=== PATIENT | male | born 1955 | race Caucasian/White ===

== ENCOUNTER 2018-02-04 00:50 | Outpatient (RCR) | payer OTHER, SELFPAY ==
[2018-02-04] MEDS: Normal Saline Flush 10 ML SYR IVP (07:15)
[2018-02-04 07:36] LABS: Abs Immature Grans 0.03 k/cumm (0.0-0.09); Absolute Basophil Count 0.04 k/cumm (0.0-0.2); Absolute Lymphocyte Count 1.57 k/cumm (1.2-3.4); Absolute Monocyte Count 1.31 k/cumm (0.11-0.7); Absolute Neutrophil Count 11.15 k/cumm (1.2-6.7); Basophils % 0.3; Eosinophils % 2.1; HCT 37.7 % (40.0-50.0); HGB 13.1 g/dL (13.5-17.5); Immature Grans % 0.2; Lymphocytes % 10.9; Mean Corp. HGB Concentration 34.7 g/dL (32.0-36.0); Mean Corpuscular Hemoglobin 30.3 pg (27.0-33.0); Mean Corpuscular Volume 87.1 fL (80-95); Mean Platelet Volume 11.1 fL (8.0-11.0); Monocytes % 9.1; Neutrophils % 77.4; Platelet Count 192 x1000/uL (130-400); RBC 4.33 m/cumm (4.50-6.00); RBC Distribution Width 12.5 % (11.8-14.1); White Blood Cell Count 14.41 k/cumm (4.4-10.8)
[2018-02-04 07:57] LABS: ALT 13 U/L (12-78); AST 7 U/L (15-37); Albumin 3.2 g/dL (3.4-5.0); Alkaline Phosphatase 99 U/L (46-116); Anion Gap 6.8 mmol/L (3-11); BUN 22 mg/dL (7-18); Bilirubin, Total 0.5 mg/dL (0.2-1.0); CO2 29.2 mmol/L (21.0-32.0); Calcium 9.2 mg/dL (8.5-10.1); Chloride 103 mmol/L (98-107); Glucose 201 mg/dL (70-100); Potassium 3.6 mmol/L (3.5-5.1); Sodium 139 mmol/L (136-145); Total Protein 6.6 g/dL (6.4-8.2)
== END 2018-02-13 23:59 | disposition home or self-care (01) ==
LOC: INF 00:50
PROVIDERS: Visit Provider Internal Medicine Hematology & Oncology
DX: C25.1 Malignant neoplasm of body of pancreas (principal); Z45.2 Encounter for adjustment and management of vascular access device
CPT/HCPCS: 36591; 80053; 85025

== ENCOUNTER 2018-02-07 01:48 | Emergency (ER) | payer OTHER, SELFPAY ==
[2018-02-07] VITALS (11 sets, daily range): BP systolic 152–157; BP diastolic 85–110; PULSE 85–101; RESP 24–26; TEMP 37.1–37.5; O2SAT 94–99
--- NOTE | 2018-02-07 01:54 | DI.RAD_ITS ---
SYMPTOMS/DIAGNOSIS: VOMITING, CANCER, ? ACUTE DISEASE CHEST: Frontal and lateral views. No priors. The heart size and pulmonary vasculature are within normal limits. The lungs are clear. No effusions or pneumothoraces are identified. Note is made of a small amount of free intraperitoneal air beneath both hemidiaphragms. IMPRESSION: 1. Small amount of pneumoperitoneum. 2. No acute pulmonary process.
[2018-02-07 02:20] LABS: Abs Immature Grans 0.01 k/cumm (0.0-0.09); Absolute Basophil Count 0.01 k/cumm (0.0-0.2); Absolute Eosinophil Count 0.01 k/cumm (0.0-0.7); Absolute Lymphocyte Count 0.75 k/cumm (1.2-3.4); Absolute Monocyte Count 0.42 k/cumm (0.11-0.7); Absolute Neutrophil Count 7.69 k/cumm (1.2-6.7); Basophils % 0.1; Eosinophils % 0.1; HCT 39.5 % (40.0-50.0); HGB 13.9 g/dL (13.5-17.5); Immature Grans % 0.1; Lymphocytes % 8.4; Mean Corp. HGB Concentration 35.2 g/dL (32.0-36.0); Mean Corpuscular Hemoglobin 30.4 pg (27.0-33.0); Mean Corpuscular Volume 86.4 fL (80-95); Mean Platelet Volume 11.3 fL (8.0-11.0); Monocytes % 4.7; Neutrophils % 86.6; Platelet Count 197 x1000/uL (130-400); RBC 4.57 m/cumm (4.50-6.00); RBC Distribution Width 12.5 % (11.8-14.1); White Blood Cell Count 8.89 k/cumm (4.4-10.8)
[2018-02-07] MEDS: Normal Saline 1,000 ML 1000 ML IV ×2 (02:20→03:32)
[2018-02-07] MEDS: Prochlorperazine 10 MG/2 ML VIAL (02:26)
[2018-02-07 02:42] LABS: ALT 14 U/L (12-78); AST 10 U/L (15-37); Albumin 3.1 g/dL (3.4-5.0); Alkaline Phosphatase 106 U/L (46-116); Anion Gap 14.5 mmol/L (3-11); BUN 16 mg/dL (7-18); Bilirubin, Direct 0.15 mg/dL (0.00-0.20); Bilirubin, Total 0.7 mg/dL (0.2-1.0); CO2 24.5 mmol/L (21.0-32.0); CREATININE 0.89 mg/dL (0.70-1.30); Chloride 98 mmol/L (98-107); Glucose 284 mg/dL (70-100); Magnesium 1.4 mg/dL (1.8-2.4); Potassium 3.5 mmol/L (3.5-5.1); Sodium 137 mmol/L (136-145); Total Protein 6.9 g/dL (6.4-8.2)
[2018-02-07 02:46] LABS: Troponin I < 0.02 ng/mL (0.00-0.06)
--- NOTE | 2018-02-07 03:08 | NUR.NOTE ---
Nursing Note: pt on side, tolerates ice chips. No emesis since arrival in ED. Improvement with Morphine.
--- NOTE | 2018-02-07 03:18 | DI.VRAD_ITS ---
EXAM: XR Chest, 2 Views CLINICAL HISTORY: 62 years old, male; Signs and symptoms; Other: Vomiting; Prior surgery; Surgery type: Port TECHNIQUE: Frontal and lateral views of the chest. COMPARISON: No relevant prior studies available. FINDINGS: Lungs: Unremarkable. No consolidation. Pleural space: Unremarkable. No pneumothorax. Heart: Unremarkable. No cardiomegaly. Mediastinum: Unremarkable. Bones/joints: Unremarkable. Other findings: Small amount of free intraperitoneal air. IMPRESSION: Small amount of free intraperitoneal air. Dictated and Authenticated by: Angel Ramirez MD. Ordering:CLEOPATRA BLOUNT MD
[2018-02-07] MEDS: MAGNESIUM SULFATE 1 GM/100 ML BAG IVPB ×2 (03:22→06:10)
--- NOTE | 2018-02-07 03:22 | W.ED.GENAD ---
Discharge Plan Discharge Details Chief Complaint: Nausea/Vomit/Diar Primary Care Provider: Karthik Marshall ED Provider: Carmen Corrales Home Meds and New Rx's Prescriptions: No Action atorvastatin 80 mg Tablet 80 mg PO DAILY RF: 0 clopidogrel [Plavix] 75 mg Tablet 75 mg PO DAILY RF: 0 aspirin 81 mg Tablet,Delayed Release (Dr/Ec) 81 mg PO DAILY RF: 0 dicyclomine 20 mg Tablet 20 mg PO QID RF: 0 amlodipine 10 mg Tablet 10 mg PO DAILY RF: 0 gabapentin 300 mg Capsule 600 mg PO BID RF: 0 fentanyl 25 mcg/hr Patch 72 Hour 1 patch TRANSDERMAL Q72H RF: 0 indomethacin 75 mg Capsule, Extended Release 75 mg PO BID RF: 0 duloxetine 20 mg Capsule,Delayed Release(Dr/Ec) 20 mg PO BID RF: 0 insulin NPH and regular human [Humulin 70/30 U-100 KwikPen] 100 unit/mL (70-30) Insulin Pen 10 units subcut BID RF: 0 cholecalciferol (vitamin D3) 2,000 unit Tablet 2,000 unit PO DAILY RF: 0 latanoprost 0.005 % Drops 1 drp OPHTHALMIC (EYE) QPM RF: 0 metoprolol tartrate 100 mg Tablet 100 mg PO DAILY RF: 0 prochlorperazine maleate [Compazine] 10 mg Tablet 10 mg PO . DIRECTED RF: 0 pantoprazole 40 mg Tablet,Delayed Release (Dr/Ec) 40 mg PO DAILY RF: 0 losartan 100 mg Tablet 100 mg PO DAILY RF: 0 Discharge Data Discharge Date/Time-TO BE ENTERED AT DEPARTURE: 02/07/18 06:35 Medical Decision Making 62-year-old male with a history of diabetes, hypertension, hyperlipidemia, GERD and who was diagnosed with stage IV pancreatic cancer 1 month ago who and his first chemo treatment at [facility] 2 days ago who presents w/ vomiting and abdominal pain since yesterday. states patient has been taking Zofran but was advised to not do so recently due to interaction with recent chemo. BP 157/110 on arrival, remainder of vitals within normal limits, afebrile. Patient appears comfortable, holding abdomen. Lungs clear to auscultation. Abdomen soft but diffusely tender. 0223 --EKG notes a rate of 78, sinus, no acute ST elevation or depression, QTc 408, QRS 102. We will place an IV, bolus IV fluids, labs, urinalysis, chest x-ray, dose of morphine and Compazine and reassess. 0325 --labs and imaging reviewed. White blood cell count 8.89. Hemoglobin 13.9. Anion gap 14.5. Creatinine 0.89. Magnesium 1.4. Troponin negative. Urinalysis not yet obtained. Will replete magnesium with 1 gIV. Vrad called to state that pt is noted to have small amount of free intraperitoneal air. Patient's reports that patient had had an endoscopy and [facility] this month as well as a laparoscopy at [facility] per Dr. Nguyen on January 26. This was discussed with [facility] radiology and he stated he would not expect this amount of air still present after laparoscopy a couple weeks ago. 0330 -- D/w Dr. Milner - recommends CT abdomen and d/w [facility] surgery. Will hold on p.o. contrast at this time due to nausea. 0335 -- Pt felt some relief after morphine and Zofran but nausea and pain returning. Will give another dose of Compazine and Dilaudid. 0355 -- D/w [facility] Dr. Nguyen - agrees with plan for CT abdomen and that air should still not be present from recent laparoscopy and would like at least a quick prep with oral contrast in addition to IV. Will accept patient for transfer once CT reported to know of any other acute findings. 0500 -- CT notes multiple foci of free intraperitoneal air predominantly in the upper abdomen given the distribution suspect gastric or duodenal bulb perforation. Results discussed with Dr. Nguyen and agrees with plan for transfer to [facility] ED. Discussed with the ED attending Dr. Grimes who accepts patient for transfer to ED - would like dose of Zosyn. 0520 --patient and informed of plan for transfer to [facility]. Patient is complaining of return of pain. Heart rate low 100s. Recheck temp 99.1. Abdomen remained soft and appears less tender to palpation. Lactate 1.1. Patient denies nausea. Will give a dose of Dilaudid. 0545 --nurse expressed concern about PVCs noted on monitor. Patient states he has a history of PVCs. He denies any chest pain or shortness of breath. Nurse stated she had noted some change in the QRS amplitude across leads and raised concern about possible prolonged QT. Repeat EKG noted rate of 94, sinus, occasional PVCs, QTC 428, QRS 100. QTc on first EKG was 408. Will give another dose of 1 g of magnesium IV. Pt stable and appears more comfortable prior to transfer. HPI General Mode of arrival: wheelchair. Date/Time Provider Initiated Documentation: 02/07/18 01:52. Limitations to Documentation: no limitations. Information obtained by: patient. HPI Narrative: Pt is a 62yo M with a history of diabetes, hypertension, hyperlipidemia, GERD, recently diagnosed stage IV pancreatic cancer with recent endoscopy and laparoscopy at [place] and [facility] respectively who had his first chemo treatment at [facility] 2 days ago who presents with vomiting and abdominal pain since yesterday. Patient states he has had chronic vomiting and abdominal pain for months which initially led to his pancreatic cancer diagnosis. States he has vomited countless times since yesterday. States it is mainly food now bile. Last ate 2 days ago. Last bowel movement today denies any diarrhea. States his abdominal pain is around his umbilicus and currently 6/10. He denies fever, chest pain, shortness of breath or urinary symptoms. Past medical history: Diabetes, hypertension, hyperlipidemia, GERD, stage IV pancreatic cancer, coronary artery disease Surgical history: Cardiac stent ?3, lumbar fusion, laparoscopy with 2 polypectomies Social history: Tobacco use ?13 years, quit 30 years ago, denies alcohol use, daily marijuana use Medications: See list Allergies: NKDA PCP: Dr. Marshall Oncology: Dr. Angelo Surgery at [facility]: Dr. Nguyen Related Data Home Medications Medication Instructions Recorded Confirmed amlodipine 10 mg PO DAILY 02/07/18 02/07/18 aspirin 81 mg PO DAILY 02/07/18 02/07/18 atorvastatin 80 mg PO DAILY 02/07/18 02/07/18 cholecalciferol (vitamin D3) 2,000 unit PO DAILY 02/07/18 02/07/18 clopidogrel [Plavix] 75 mg PO DAILY 02/07/18 02/07/18 dicyclomine 20 mg PO QID 02/07/18 02/07/18 duloxetine 20 mg PO BID 02/07/18 02/07/18 fentanyl 1 patch TRANSDERMAL Q72H 02/07/18 02/07/18 gabapentin 600 mg PO BID 02/07/18 02/07/18 indomethacin 75 mg PO BID 02/07/18 02/07/18 insulin NPH and regular human 10 units SUBCUT BID 02/07/18 02/07/18 [Humulin 70/30 U-100 KwikPen] latanoprost 1 drp OPHTHALMIC (EYE) QPM 02/07/18 02/07/18 losartan 100 mg PO DAILY 02/07/18 02/07/18 metoprolol tartrate 100 mg PO DAILY 02/07/18 02/07/18 pantoprazole 40 mg PO DAILY 02/07/18 02/07/18 prochlorperazine maleate 10 mg PO . DIRECTED 02/07/18 02/07/18 [Compazine] Allergies Allergy/AdvReac Type Severity Reaction Status Date / Time No Known Allergies Allergy Unverified 02/07/18 02:27 General Stated Complaint: Nausea/Vomit/Diar MOIZ: 2 Review of Systems Review of Systems All systems reviewed & are unremarkable except as noted in HPI and below Constitutional Denies chills, Denies excessive sweating, Denies fatigue, Denies fever(s), Denies weakness and Denies weight loss Eyes Reports system reviewed and no additional complaints, except as docu and Denies blurry vision ENT Denies vertigo, Denies dizziness, Denies otalgia, Denies nasal congestion, Denies sore throat and Denies throat swelling Cardiovascular Denies chest pain, Denies syncope, Denies rapid heart rate and Denies dyspnea Respiratory Denies dyspnea Gastrointestinal Reports abdominal pain, Denies diarrhea, Reports nausea and Reports vomiting Genitourinary Denies hematuria, Denies dysuria and Denies flank pain Musculoskeletal Denies back pain and Denies joint swelling Integumentary/Breasts Denies lesions and Denies rash Neurologic Denies behavioral changes, Denies confusion, Denies vertigo, Denies dizziness, Denies syncope and Denies weakness Psychiatric Denies behavioral changes, Denies confusion and Denies depression Endocrine Denies excessive sweating and Denies fatigue Hematologic/Lymphatic Denies easy bruising and Denies lymphadenopathy Allergic/Immunologic Denies throat swelling PFSH Social History Smoking/Tobacco Use Status: Former Tobacco Use Exam Const General: cooperative, acute distress (Mild to moderate, holding abdomen) and disheveled Orientation: alert, awake and oriented x3 HENMT Head: normal to inspection Ears: hearing grossly normal bilaterally and external ears normal General nose exam: external nose normal Face and sinus: normal facial exam Mouth: mucous membranes dry Throat: posterior oropharynx normal Eyes General: appearance normal, both eyes and all related structures Eyelids: eyelids normal Pupils: PERRL EOM: EOM intact bilaterally Neck Neck: normal visual inspection Lymphatic: no lymphadenopathy noted Chest Chest: normal inspection of the chest Resp Effort & Inspection: normal respiratory effort and able to speak in complete sentences Auscultation: clear to auscultation bilaterally Cardio Rate: regular rate Rhythm: regular rhythm GI Inspection: normal to inspection and non-distended Palpation: soft, not firm, no guarding, no hepatosplenomegaly, no masses and tender (diffuse, worse in lower abdomen) Auscultation: no high pitched sounds and hypoactive bowel sounds Male General Exam: Yes normal external exam Scrotum: scrotum normal Testes: normal and no testicular tenderness Back/Spine/Pelvis Back: no CVA tenderness Skin General skin exam: no rashes or lesions noted Neuro General: alert and awake Cognition: normal cognition Speech: speech normal Gait: normal gait Motor: muscle tone normal throughout Sensory Exam: no sensory deficits noted Extrem General: normal to inspection, full ROM, normal capillary refill and no edema Psych Appearance: grossly normal Mental Status: mental status grossly normal Speech and Movement: restless Thought Process: normal Course Vital Signs Temperature 98.8 F 02/07/18 02:16 Pulse 89 02/07/18 02:16 Respiratory Rate 26 H 02/07/18 02:16 Blood Pressure 157/110 H 02/07/18 02:16 Pulse Oximetry 99 02/07/18 02:16 Temperature 98.8 F 02/07/18 02:16 Temperature Source Tympanic 02/07/18 02:16 Pulse 89 02/07/18 02:16 Pulse 99 H 02/07/18 03:00 Respiratory Rate 26 H 02/07/18 02:16 Respiratory Effort Non-Labored 02/07/18 02:27 Blood Pressure 157/110 H 02/07/18 02:16 Blood Pressure Position Supine 02/07/18 02:16 Pulse Oximetry 94 L 02/07/18 03:00 Oxygen Delivery Method Room Air 02/07/18 02:16 Oxygen Flow Rate 0 02/07/18 02:16 Pain Level 8 02/07/18 02:58 Comment 02/07/18 02:16 Lab/Test Results Lab/Test Results: Laboratory Tests Range/Units 02/07/18 02/07/18 02:10 02:10 WBC (4.4-10.8) k/cumm 8.89 RBC (4.50-6.00) m/cumm 4.57 Hgb (13.5-17.5) g/dL 13.9 Hct (40.0-50.0) % 39.5 L MCV (80-95) fL 86.4 MCH (27.0-33.0) pg 30.4 MCHC (32.0-36.0) g/dL 35.2 RDW (11.8-14.1) % 12.5 Plt Count (130-400) x1000/uL 197 MPV (8.0-11.0) fL 11.3 H Immature Gran % 0.1 Neutrophils % 86.6 Lymphocytes % 8.4 Monocytes % 4.7 Eosinophils % 0.1 Basophils % 0.1 Absolute Neutrophils (1.2-6.7) k/cumm 7.69 H Absolute Lymphocytes (1.2-3.4) k/cumm 0.75 L Absolute Monocytes (0.11-0.7) k/cumm 0.42 Absolute Eosinophils (0.0-0.7) k/cumm 0.01 Absolute Basophils (0.0-0.2) k/cumm 0.01 Sodium (136-145) mmol/L 137 Potassium (3.5-5.1) mmol/L 3.5 Chloride (98-107) mmol/L 98 Carbon Dioxide (21.0-32.0) mmol/L 24.5 Anion Gap (3-11) mmol/L 14.5 H BUN (7-18) mg/dL 16 D Creatinine (0.70-1.30) mg/dL 0.89 Estimated GFR/1.73 m2 (mL/min/1.73m2) >= 60.00 Glucose (70-100) mg/dL 284 H Calcium (8.5-10.1) mg/dL 9.0 Magnesium (1.8-2.4) mg/dL 1.4 L Total Bilirubin (0.2-1.0) mg/dL 0.7 Conjugated Bilirubin (0.00-0.20) mg/dL 0.15 AST (15-37) U/L 10 L ALT (12-78) U/L 14 Alkaline Phosphatase (46-116) U/L 106 Troponin I (0.00-0.06) ng/mL < 0.02 Total Protein (6.4-8.2) g/dL 6.9 Albumin (3.4-5.0) g/dL 3.1 L
--- NOTE | 2018-02-07 03:31 | DI.CT_ITS ---
SYMPTOMS/DIAGNOSIS: ABD PAIN, VOMITING, ? ACUTE PROCESS CT SCAN OF THE ABDOMEN AND PELVIS: CT abdomen and pelvis was performed following oral and intravenous contrast material. The visualized lung bases are clear. The liver is unremarkable. No evidence of a hepatic mass is seen. The gallbladder is negative. No biliary ductal dilatation is present. The portal and superior mesenteric veins are patent. The spleen and adrenal glands are unremarkable. The kidneys show normal and symmetric enhancement. No suspicious solid renal masses or obstruction is identified. The urinary bladder is intact. The prostate gland is unremarkable. There is an ill-defined area of decreased attenuation in the distal body of the stomach measuring roughly 6 cm by 3 cm, suspicious for pancreatic mass. Portions of the splenic vein are not well visualized. The abdominal aorta is intact. No significant aneurysmal dilatation is seen. Note is made of a circumaortic left renal vein. No abdominal ascites is present. There is a small to moderate amount of free intraperitoneal air, predominantly in the upper abdomen. The location of the air raises the question of a possible gastric or duodenal perforation. There is diverticulosis of the colon but no evidence of acute diverticulitis. No findings to suggest an acute appendicitis are present. Post surgical changes are seen in the spine with L 3, 4 and 5 laminectomies. Pedicle screws and connecting rods are seen at L 4 and L 5. Grade I spondylolisthesis of L 4 on L 5. Moderately severe degenerative changes are seen in the lumbar spine particularly at L 1 - 2 and L 2 - 3. IMPRESSION: 1. Free intraperitoneal air predominantly in the upper abdomen raising the question of perforation of the stomach or duodenum. 2. Diverticulosis of the colon but no evidence of acute diverticulitis. 3. Mass in the body of the pancreas of which the patient is reportedly aware. Please correlate clinically.
[2018-02-07 03:33] LABS: Bilirubin Negative (Negative); Blood Negative (Negative); Clarity Clear; Glucose 500 mg/dL (Negative); Ketones 80 mg/dL (Negative); Leukocyte Esterase Negative (Negative); Nitrite Negative (Negative); Urobilinogen 0.2 EU/dL (Up TO 0.2)
[2018-02-07] MEDS: Prochlorperazine 10 MG/2 ML VIAL IVP (03:42)
[2018-02-07 03:44] LABS: Bacteria Rare HPF (Negative); C & S Indicated? No; Casts Negative LPF (Negative); Crystals Negative HPF (Negative); Epithelial Cells Negative HPF (Negative); Mucus Negative (Negative); RBC 0-2 (0-2); WBC 0-2 HPF (0-5)
[2018-02-07] MEDS: HYDROmorphone 2 MG/ML VIAL 1 MG IVP ×2 (03:44→06:12)
[2018-02-07 04:05] LABS: Lactate-non-spesis 1.1 mmol/L (0.6-1.4)
[2018-02-07] MEDS: Breeza Beverage 473 ML BTL PO (04:45)
[2018-02-07] MEDS: Omnipaque 350 MG/ML 50 ML BTL IJ (04:46)
[2018-02-07] MEDS: Omnipaque 350 MG/ML 100 ML BTL IJ (04:46)
--- NOTE | 2018-02-07 04:50 | DI.VRAD_ITS ---
EXAM: CT Abdomen and Pelvis With Intravenous Contrast CLINICAL HISTORY: 62 years old, male; Pain; Abdominal pain; Epigastric TECHNIQUE: Axial computed tomography images of the abdomen and pelvis with intravenous contrast. All CT scans at this facility use at least one of these dose optimization techniques: automated exposure control; mA and/or kV adjustment per patient size (includes targeted exams where dose is matched to clinical indication); or iterative reconstruction. Coronal and sagittal reformatted images were created and reviewed. CONTRAST: 100 mL of [id number] administered intravenously. COMPARISON: No relevant prior studies available. FINDINGS: Lung bases: Unremarkable. No mass. No consolidation. ABDOMEN: Liver: Unremarkable. No mass. Gallbladder and bile ducts: Unremarkable. No calcified stones. No ductal dilation. Pancreas: Ill-defined pancreatic body hypodensity measuring roughly 5.9 x 3.1 cm. No ductal dilation. Spleen: Unremarkable. No splenomegaly. Adrenals: Unremarkable. No mass. Kidneys and ureters: Unremarkable. No solid mass. No hydronephrosis. Stomach and bowel: There are some colonic diverticuli. No obstruction. No mucosal thickening. PELVIS: Appendix: No findings to suggest acute appendicitis. Bladder: Unremarkable. No mass. Reproductive: Unremarkable as visualized. ABDOMEN and PELVIS: Intraperitoneal space: Multiple foci of free intraperitoneal air predominantly in the upper abdomen. No significant fluid collection. Bones/joints: No acute fracture. No dislocation. Soft tissues: Unremarkable. Vasculature: Unremarkable. No abdominal aortic aneurysm. Lymph nodes: Unremarkable. No enlarged lymph nodes. IMPRESSION: 1. Many foci of free intraperitoneal air predominantly in the upper abdomen. I do not see a source but given the distribution gastric or duodenal bulb perforation would be most likely. I understand that the patient had laparoscopy roughly 2 weeks ago and although conceivably this could be residual gas from that procedure I think that that would be less likely. 2. Colonic diverticulosis 3. Known pancreatic mass Dictated and Authenticated by: Angel Ramirez MD. Ordering:CLEOPATRA BLOUNT MD
[2018-02-07] MEDS: PIPERACILLIN/TAZO 3.375 GM in Normal Saline 50 ML IVPB (05:26)
[2018-02-07] MEDS: Normal Saline 1,000 ML 100 ML IV (05:26)
== END 2018-02-07 06:35 ==
PROVIDERS: Emergency Provider Physician Assistant; PCP Internal Medicine
DX: R10.33 Periumbilical pain (principal); R11.2 Nausea with vomiting, unspecified; C25.9 Malignant neoplasm of pancreas, unspecified; Z79.899 Other long term (current) drug therapy; E11.9 Type 2 diabetes mellitus without complications; Z79.4 Long term (current) use of insulin; I10 Essential (primary) hypertension
CPT/HCPCS: 36415; 80053; 80076; 93005; 96361; 96365; 96366; 96368; 96375; 96376; 99285; 71046; 74177; 81003; 81015; 83605; 83735; 84484; 85025; 93010; J0780; J2543; J3475; J3490; Q9967